=== PATIENT | female | born 1970 | race Caucasian/White ===

== ENCOUNTER → 2018-05-07 | Outpatient (CLI) | payer OTHER | LOC: FIMAGING 15:01 | PROVIDERS: ATTEND Family Medicine | DX: Z12.31 Encounter for screening mammogram for malignant neoplasm of breast (principal) ==

== ENCOUNTER 2018-09-13 21:46 | Observation (INO) | payer OTHER ==
[2018-09-13] MEDS ORDERED: NS 1,000 ML IV ONE ×2 (21:51)
--- NOTE | 2018-09-13 21:54 | EDPHY ---
H & P Time Seen by Provider: 09/13/18 21:52 HPI/ROS: HPI CHIEF COMPLAINT: Nausea, vomiting, diarrhea. HISTORY OF PRESENT ILLNESS: This otherwise healthy 48-year-old female, denies any significant medical history presents emergency room nausea vomiting diarrhea. Patient reports that she had a lunch prepped by a [employer] around 230. She states around 430 she became sick having nausea vomiting and diarrhea nonbilious nonbloody. Joint pain. States she vomited multiple times and is now complain of generalized weakness. She denies any significant abdominal pain. Denies chest pain or shortness of breath. Main complaint generalized weakness, flu-like illness, nausea and vomiting. Past Medical History: No significant medical history Past Surgical History: No significant surgical history Social History: Denies drugs alcohol tobacco. Family History: Noncontributory ROS REVIEW OF SYSTEMS: 10 Systems were reviewed and negative with the exception of the elements mentioned in the history of present illness. Exam Constitutional appears well nontoxic no acute distress triage nursing summary reviewed, vital signs reviewed, awake/alert. Vital signs stable. Eyes normal conjunctivae and sclera, EOMI, PERRLA. HENT normal inspection, atraumatic, moist mucus membranes, no epistaxis, neck supple/ no meningismus, no raccoon eyes. Respiratory clear to auscultation bilaterally, normal breath sounds, no respiratory distress, no wheezing. Cardiovascular rate normal, regular rhythm, no murmur, no edema, distal pulses normal. Gastrointestinal soft, non-tender, no rebound, no guarding, normal bowel sounds, no distension, no pulsatile mass. Genitourinary no CVA tenderness. Musculoskeletal no midline vertebral tenderness, full range of motion, no calf swelling, no tenderness of extremities, no meningismus, good pulses, neurovascularly intact. Skin pink, warm, & dry, no rash, skin atraumatic. Neurologic awake, alert and oriented x 3, AAOx3, moves all 4 extremities equally, motor intact, sensory intact, CN II-XII intact, normal cerebellar, normal vision, normal speech. Psychiatric normal mood/affect. Heme/Lymph/Immune no lymphadenopathy. Differential Diagnosis: Differential diagnosis includes but is not limited to and in no particular order: Bowel obstruction, appendicitis, gallbladder disease, diverticulitis, colitis, enteritis, perforated viscus, gastritis, GERD , esophagitis, urinary tract infection, pyelonephritis, kidney stones Medical Decision Making: Plan for this patient IV establishment IV fluid bolus , IV Zofran as needed for nausea, basic labs, influenza, UA. Re-evaluate Re-evaluation: Troponin 0.00 EKG interpretation by me on record in [employer] system. Impression time of EKG 2213, sinus rhythm rate of 70 no signs of acute ischemia. ED x-ray chest one view negative for acute cardiopulmonary disease. 1252: I re-evaluate the patient this time. She is resting comfortably however she still complaining of ongoing nausea. Global weakness. She denies chest pain or shortness of breath. Offer patient hospital admission for generalized weakness, ongoing nausea and rehydration she would prefer this. Except hospital admission. 3rd L fluid ordered. 12.5 mg IV Phenergan ordered for ongoing nausea. Her abdomen remained soft nontender. She is not vomiting here. Troponin negative. EKG nonischemic. Chest x-ray reviewed. Labs reviewed. Negative flu. Spoke with the hospitalist service Dr. Quintana agrees to admit. Patient agrees for admission Source: Patient, EMS - Personal History Tetanus Vaccine Date: < 10 years - Medical/Surgical History Hx Asthma: No Hx Chronic Respiratory Disease: No Hx Diabetes: No Hx Cardiac Disease: No Hx Renal Disease: No Hx Cirrhosis: No Hx Alcoholism: No Hx HIV/AIDS: No Hx Splenectomy or Spleen Trauma: No Other PMH: none - Social History Smoking Status: Never smoked Constitutional: Initial Vital Signs Temperature (C) 37.0 C 09/13/18 21:52 Heart Rate 78 09/13/18 21:52 Respiratory Rate 18 09/13/18 21:52 Blood Pressure 145/85 H 09/13/18 21:52 O2 Sat (%) 99 09/13/18 21:52 O2 Delivery Mode Room Air Allergies/Adverse Reactions: No Known Allergies Allergy (Unverified 05/06/14 13:49) Home Medications: Medication Instructions Recorded Estradiol [Vivelle-Dot 0.05MG (*)] 0.05 mg TD WE 09/14/18 Levothyroxine [Synthroid 25 mcg 25 mcg PO DAILY06 09/14/18 (*)] Medical Decision Making - Data Points Laboratory Results: Laboratory Results 09/13/18 21:45 09/13/18 21:45 Medications Given: Discontinued Medications Acetaminophen (Tylenol) 650 mg PO Q4HRS PRN PRN Reason: Pain, Mild/Fever, Can Take PO Stop: 03/13/19 00:44 Last Admin: 09/14/18 04:34 Dose: 650 mg Sodium Chloride (Ns) 1,000 mls @ 0 mls/hr IV EDNOW ONE; Wide Open PRN Reason: Protocol Stop: 09/13/18 21:52 Last Admin: 09/13/18 22:01 Dose: 1,000 mls Sodium Chloride (Ns) 1,000 mls @ 0 mls/hr IV EDNOW ONE; Wide Open PRN Reason: Protocol Stop: 09/13/18 21:52 Last Admin: 09/13/18 22:02 Dose: 1,000 mls Sodium Chloride (Ns) 1,000 mls @ 0 mls/hr IV ONCE ONE PRN Reason: Wide Open Stop: 09/14/18 00:36 Last Admin: 09/14/18 01:11 Dose: 1,000 mls Ondansetron HCl (Zofran) 4 mg IVP Q4HRS PRN PRN Reason: Nausea/Vomiting, Can't Take PO Stop: 03/13/19 00:44 Last Admin: 09/14/18 03:05 Dose: 4 mg Promethazine HCl (Phenergan) 6.25 mg IVP ONCE ONE Stop: 09/13/18 23:44 Last Admin: 09/13/18 23:46 Dose: 6.25 mg Promethazine HCl (Phenergan) 12.5 mg IVP ONCE ONE Stop: 09/14/18 00:36 Last Admin: 09/14/18 01:11 Dose: 12.5 mg Point of Care Test Results: Chemistry 09/13/18 22:00 POC Troponin I 0.00 ng/mL ng/mL (0.00-0.08) Departure - Departure Disposition: [facility] Acute Clinical Impression: Generalized weakness Nausea and vomiting Qualifiers: Vomiting type: unspecified Vomiting Intractability: non-intractable Qualified Code(s): R11.2 - Nausea with vomiting, unspecified Diarrhea Qualifiers: Diarrhea type: unspecified type Qualified Code(s): R19.7 - Diarrhea, unspecified Condition: Good
[2018-09-13 22:06] LABS: PLATELET COUNT 316 10^3/uL (150-400)
[2018-09-13 23:02] LABS: CREATINE KINASE 104 IU/L (0-156)
[2018-09-13] MEDS ORDERED: PROMETHAZINE HCL 25 MG/ML INJ IVP ONE (23:43)
[2018-09-14] MEDS ORDERED: NS 1,000 ML IV ONE (00:35)
[2018-09-14] MEDS ORDERED: PROMETHAZINE HCL 25 MG/ML INJ IVP ONE (00:35)
[2018-09-14] MEDS ORDERED: ONDANSETRON 4 MG/2 ML VIAL IVP PRN (00:45)
[2018-09-14] MEDS ORDERED: ACETAMINOPHEN 325 MG TAB PO PRN (00:45)
[2018-09-14] MEDS ORDERED: NS 1,000 ML IV SCH (00:45)
[2018-09-14] MEDS ORDERED: ONDANSETRON DISINTEGRATING 4 MG TAB PO PRN (00:45)
[2018-09-14] MEDS ORDERED: PROMETHAZINE HCL 25 MG/ML INJ IVP PRN (00:45)
[2018-09-14] MEDS ORDERED: LORazepam 2 MG/ML INJ IVP PRN (00:45)
--- NOTE | 2018-09-14 06:22 | GHP ---
[f rep st] HISTORY AND PHYSICAL DATE OF ADMISSION: 09/14/2018 SOURCE: Patient provides history, is a fair historian. EMR was reviewed and case discussed with ED provider. CHIEF COMPLAINT: Nausea, vomiting, diarrhea. HISTORY OF PRESENT ILLNESS: This is a 48-year-old female without significant past medical history, w maureen presents to the emergency department today with complaints of several hours of intractable nausea, vomiting, and diarrhea. Patient reports that she had lunch approximately 2:30, 2 hours following th is patient developed her GI symptoms. She denies any hematemesis. No melena or hematochezia. She h as no known sick contacts. She denies any fevers, but has been experiencing some chills. She also c omplains of some generalized weakness and joint pain. She has had some intermittent abdominal discom fort. The patient reports that since arrival to the medical floor, she has continued to have some ep isodes of vomiting, but overall feels like her symptoms have improved minimally. REVIEW OF SYSTEMS: Ten systems reviewed, otherwise negative. ALLERGIES: No known drug allergies. HOME MEDICATIONS: Synthroid, not yet verified by pharmacy. PAST MEDICAL HISTORY: Patient denies. PAST SURGICAL HISTORY: Patient denies. FAMILY HISTORY: Patient denies any chronic GI issues in the family. SOCIAL HISTORY: Patient denies any tobacco, drugs, or alcohol. CODE STATUS: Full. PHYSICAL EXAM: VITAL SIGNS: Upon arrival to the ED, blood pressure 145/85, heart rate 78, respirato ry rate 18, O2 saturation 99% on room air, temperature 37.0. Currently available vitals: Blood pres sure 120/70, heart rate is 78, respiratory rate 16, O2 saturation 92% on room air, temperature 38.3. GENERAL: No acute distress. Patient does appear fatigued and acutely ill, but nontoxic. Cheeks ar e flushed. HEAD: Normocephalic, atraumatic. EYES: Extraocular muscles grossly intact, but exam li mited as patient keeps her eyes closed for the majority of the interview. No ocular discharge. ENT: Mucous membranes appear dry. Lips are flaky and cracked. No nasal discharge. NECK: Supple, trac hea midline. CV: Regular rate and rhythm. No murmurs, rubs, or gallops appreciated. RESPIRATORY: Lungs clear to auscultation bilaterally. No wheezes, rales, or rhonchi. ABDOMEN: Soft. No discom fort to palpation. Hypoactive bowel sounds. : No suprapubic tenderness to palpation. No Hutton c atheter in place. MUSCULOSKELETAL: Grossly normal exam. Patient moves all extremities and sits up independently. NEURO: Grossly nonfocal, no facial drooping. Moves all extremities as noted above. PSYCH: Affect slightly flat, but patient does appear to feel unwell. She is otherwise cooperative. IMAGING: Chest x-ray: Image reviewed myself and negative for any acute findings. EKG reviewed myself, shows normal sinus rhythm, nonspecific T-wave changes in the inferolateral leads . Q-waves in the anteroseptal leads. QTc is 517. Rate in the 70s. ASSESSMENT/PLAN: A 48-year-old female who presents with acute onset of nausea, vomiting, diarrhea. 1. Nausea, vomiting, diarrhea. Suspect either a food-borne illness versus a viral gastroenteritis. LFTs are within normal limits. Serum negative. 2. Dehydration. Continue with IV fluid supplementation. Encourage oral intake as tolerated. 3. Secondary polycythemia, likely secondary to dehydration. 4. Fluid, electrolyte, nutrition. Advance diet as tolerated. Intravenous fluids as noted above. E lectrolytes are adequate, do not require replacement, but will monitor BMP in the morning, given cont inued use of IV fluids. 5. Code status is full. 6. Prophylaxis. Sequential compression devices. Holding anticoagulation. Patient overall low risk . Encourage mobilization. 7. Disposition. Patient will be admitted to observation status on the [facility] floor for continued s upportive care, IV hydration and antiemetics. /[id number]/MODL
--- NOTE | 2018-09-14 07:34 | CPEKG ---
Test Reason : OPEN Blood Pressure : / mmHG Vent. Rate : 070 BPM Atrial Rate : 070 BPM P-R Int : 145 ms QRS Dur : 072 ms QT Int : 479 ms P-R-T Axes : -36 070 057 degrees QTc Int : 517 ms Sinus rhythm Low voltage, extremity leads Probable anteroseptal infarct, old Prolonged QT interval Confirmed by Ej Whaley ([id number]) on 09/14/2018 7:34:01 AM Referred By: Ej Whaley Confirmed By:Ej Whaley
--- NOTE | 2018-09-14 12:27 | ASMTCMCOM ---
CM Note CM Note Notes: Pt is a 48 y/o woman, with no known significant hx of medical issues, who came to the ED following several hours of intractable nausea, vomiting and diarreah. She lives independently. OT/PT have not been ordered and no CM needs have been identified. CM will follow for changes. D/C Plan: Anticipate independent. Date Signed: 09/14/2018 12:26 PM Electronically Signed By:Khushi Johnson
--- NOTE | 2018-09-14 15:46 | PDDCSUM ---
Discharge Summary Discharge Summary: DAtes of service --admit and discharge 09/14/18 Consultations: none Procedures: none Hospital course by problem: #viral gastroenteritis: patient presented with sxs of n/v/d, GI pathogen panel returned with norovirus after patietn discharge, she has had that previously this year as well, her sxs had resolved prior to dc, she was tolerating food and without recurrent issues # dehydration: 2/ above, s/p IVF # hypothyroid: continue synthroid DC home f/u with PCP per routine, sooner if sxs recur no medication changes > 35 min spent in dc more than half in coordination of care
--- NOTE | 2018-09-14 15:59 | ASDISCHSUM ---
Discharge Information Plan Status:Home with No Needs Medically Cleared to Leave: Discharge Date: CM D/C Disposition:Home, Routine, Self-Care ADT D/C Disposition:Home, Routine, Self-Care Projected Discharge Date: Transportation at D/C:Family Discharge Delay Reason: Follow-Up Date: Discharge Slot: Final Diagnosis: Placement Information Patient Contact Information Contact Name:OLIVERIO Relationship:Friend Address: Home Phone: City: [facility] Phone: [place] Code: Email: Financial Information Financial Class:NANCY Primary Plan Desc:BETZAIDA BAKER Primary Plan Number:[id number] Secondary Plan Desc: Secondary Plan Number: Assessment Information [facility] CM Progress Note CM Note CM Note Notes: Pt is a 48 y/o woman, with no known significant hx of medical issues, who came to the ED following several hours of intractable nausea, vomiting and diarreah. She lives independently. OT/PT have not been ordered and no CM needs have been identified. CM will follow for changes. D/C Plan: Anticipate independent. Date Signed: 09/14/2018 12:26 PM Electronically Signed By:Khushi Johnson Intervention Information
--- NOTE | 2018-09-14 16:00 | ASMTLACE ---
LACE Length of stay for Answers: Less than 1 day current admission Acuity / Level of Answers: No Care: Did the patient have an inpatient admission? # of Emergency department Answers: 1-2 visits in the last 6 months Score: 1 Date Signed: 09/14/2018 03:59 PM Electronically Signed By:Khushi Johnson
[2018-09-14 16:13] VITALS: BP 116/75
[2018-09-15] MEDS ORDERED: LEVOTHYROXINE 25 MCG TAB PO SCH (06:00)
--- NOTE | 2018-09-18 15:02 | CPEKG ---
Test Reason : OPEN Blood Pressure : / mmHG Vent. Rate : 064 BPM Atrial Rate : 064 BPM P-R Int : 147 ms QRS Dur : 076 ms QT Int : 438 ms P-R-T Axes : -26 042 069 degrees QTc Int : 452 ms Sinus rhythm Low voltage, extremity leads Confirmed by Oscar Chan ([id number] on 09/18/2018 3:01:39 PM Referred By: Aruna Delgado Confirmed By:Oscar Chan
== END 2018-09-14 16:49 | disposition home or self-care (01) ==
LOC: EDUNIT# → F3N 09-14 02:16
PROVIDERS: ADMIT Family Medicine; ATTEND Internal Medicine
DX: A08.11 Acute gastroenteropathy due to Norwalk agent (principal); E86.0 Dehydration; E03.9 Hypothyroidism, unspecified
CPT/HCPCS: 71045; 93005; G0378; 84484-ER; 96374; J2405; J2550